=== PATIENT | female | born 1955 | race Caucasian/White ===

== ENCOUNTER → 2022-08-11 11:32 | Outpatient (BNVA) | payer MEDICARE, BC, SELFPAY | PROVIDERS: PCP Family Medicine; Visit Provider Internal Medicine | DX: R76.8 Other specified abnormal immunological findings in serum (principal); M79.606 Pain in leg, unspecified; R21 Rash and other nonspecific skin eruption; Z11.59 Encounter for screening for other viral diseases | CPT/HCPCS: 72100; 80053; 81001; 82550; 82595; 82607; 83516; 85025; 85651; 86140; 86160; 86162; 86200; 86235; 86255; 86376; 86704; 86803; 87340; 99203 ==

== ENCOUNTER → 2022-09-11 15:28 | Outpatient (BNVA) | payer MEDICARE, BC, SELFPAY | PROVIDERS: PCP Family Medicine; Visit Provider Internal Medicine | DX: R76.8 Other specified abnormal immunological findings in serum (principal); M79.606 Pain in leg, unspecified; R21 Rash and other nonspecific skin eruption; M25.50 Pain in unspecified joint; I73.00 Raynaud's syndrome without gangrene; R53.83 Other fatigue | CPT/HCPCS: 99214 ==